=== PATIENT | male | born 1985 | race Caucasian/White ===

== ENCOUNTER 2021-09-07 08:23 | Emergency (ER) | payer OTHER, SELFPAY ==
--- NOTE | ~2021-09-07 | XR_ITS ---
EXAMINATION: XR RIBS, LEFT CLINICAL INFORMATION: Left chest wall and back pain. COMPARISON: None TECHNIQUE: 3 views of the left ribs were obtained. Chest one view FINDINGS: Lungs are hyperinflated. No consolidation, pneumothorax, or pleural effusion. The cardiomediastinal silhouette and pulmonary vasculature are normal. Osseous structures are unremarkable. Ribs are intact. No fractures are identified. XR/XR ribs LT min 3V w CXR1V IMPRESSION: Unremarkable chest and left rib exam.
[2021-09-07 08:54] VITALS: BP 155/99; PULSE 78; RESP 19; TEMP 36.6; O2SAT 99; BMI 26.6
--- NOTE | 2021-09-07 09:26 | ED.GENADULT ---
HPI - General Adult General Chief complaint: General Medical <Pita Pino NP - Last Filed: 09/07/21 11:10> Stated complaint: flank pain <Pita Pino NP - Last Filed: 09/07/21 11:10> Time Seen by Provider: 09/07/21 09:10 <Pita Pino NP - Last Filed: 09/07/21 11:10> Source: patient <Pita Pino NP - Last Filed: 09/07/21 11:10> Mode of arrival: ambulatory <Pita Pino NP - Last Filed: 09/07/21 11:10> Limitations: no limitations <Pita Pino NP - Last Filed: 09/07/21 11:10> History of Present Illness HPI narrative: 36yo male heatlhy with history of tobacco smoking here with complaints of left chest wall/rib pain since Monday. Worsened since last evening. +chronic cough which patient contributes to smoking. NO shortness of breath, leg swelling or pain, fevers, chills, abdominal pain, vomiting, diarrhea. 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 No specific injury or trauma that the patient can remember. No recent travel or sick contact. Unvaccinated for covid. No history of DVT/PE, +family history (mom). <Pita Pino NP - Last Filed: 09/07/21 11:10> Related Data Home medications: Previous Rx's Medication Instructions Recorded cyclobenzaprine 10 mg tablet 10 mg PO TID PRN #10 tab 09/07/21 lidocaine 5 % topical patch 1 patch TOPICAL DAILY #15 ea 09/07/21 (Lidoderm) naproxen 500 mg tablet 500 mg PO BID PRN #20 tab 09/07/21 <Pita Pino NP - Last Filed: 09/07/21 11:10> Allergies/adverse reactions: Allergies Allergy/AdvReac Type Severity Reaction Status Date / Time No Known Allergies Allergy Verified 09/07/21 09:18 <Pita Pino NP - Last Filed: 09/07/21 11:10> Review of Systems Review of Systems: Yes all other systems are reviewed and are negative <Pita Pino NP - Last Filed: 09/07/21 11:10> Constitutional: Constitutional: Reports no additional constitutional complaints, Denies body ache(s), Denies chills, Denies fever(s), Denies headache(s) and Denies weakness <Pita Pino [employer] HATCH[employer] SUPERVISOR - Last Filed: 09/07/21 11:10> Eyes: Eyes: Reports no additional eye complaints and Denies change in vision <Pita Pino [employer] HATCHERY SUPERVISOR - Last Filed: 09/07/21 11:10> ENT: Reports system reviewed and no additional complaints, except as documented, Denies dizziness, Denies headache(s), Denies nasal congestion, Denies nasal discharge and Denies neck pain <Pita Pino NP - Last Filed: 09/07/21 11:10> Cardiovascular: Cardiovascular: Reports no additional cardiovascular complaints, Reports chest pain, Denies leg edema and Denies dyspnea <Pita Pino NP - Last Filed: 09/07/21 11:10> Respiratory: Respiratory: Reports no additional respiratory complaints, Denies cough and Denies dyspnea <Pita Pino [employer] HATCHERY SUPERVISOR - Last Filed: 09/07/21 11:10> Gastrointestinal: Gastrointestinal: Reports no additional gastrointestinal complaints, Denies abdominal pain, Denies diarrhea, Denies nausea and Denies vomiting <Pita Pino NP - Last Filed: 09/07/21 11:10> Genitourinary: Genitourinary: Denies urinary incontinence <Pita Pino NP - Last Filed: 09/07/21 11:10> Musculoskeletal: Musculoskeletal: Reports no additional musculoskeletal complaints, Denies back pain, Denies arthralgias, Denies joint swelling, Denies neck pain, Denies numbness and Denies tingling <Pita Pino NP - Last Filed: 09/07/21 11:10> Integumentary/Breasts: Skin/Breast: Reports system reviewed and no additional complaints, except as docu and Denies rash <Pita Pino NP - Last Filed: 09/07/21 11:10> Neurologic: Reports system reviewed and no additional complaints, except as documented, Denies Abnormal speech present, Denies dizziness, Denies headache(s), Denies numbness, Denies tingling and Denies weakness <Pita Pion NP - Last Filed: 09/07/21 11:10> [facility] Past Medical History Attestation statement: The following information was validated with the patient. <Pita Pino NP - Last Filed: 09/07/21 11:10> Source: old records reviewed and nursing notes reviewed <Pita Pino NP - Last Filed: 09/07/21 11:10> Social History Social History: Social History Advance Directives: No Advance Directives Information Provided: No <Pita Pino NP - Last Filed: 09/07/21 11:10> Physical Exam Vital Signs: Vital Signs: Last Vital Signs Temp 98 F 09/07/21 08:54 Pulse 78 09/07/21 08:54 Resp 09/07/21 08:54 BP 155/99 H 09/07/21 08:54 Pulse Ox 99 09/07/21 08:54 BMI result Body Mass Index 26.6 <Pita Pino NP - Last Filed: 09/07/21 11:10> Vital Signs: Last Vital Signs Temp 98 F 09/07/21 08:54 Pulse 78 09/07/21 08:54 Resp 09/07/21 08:54 BP 155/99 H 09/07/21 08:54 Pulse Ox 99 09/07/21 08:54 BMI result Body Mass Index 26.6 <Joni Montesinos MD - Last Filed: 09/07/21 16:28> Const: General: cooperative, healthy appearing, comfortable and no acute distress <Pita Pino NP - Last Filed: 09/07/21 11:10> Orientation/consciousness: patient oriented x3 <Pita Pino NP - Last Filed: 09/07/21 11:10> Limitations: no limitations <Pita Pino NP - Last Filed: 09/07/21 11:10> HENMT: Head: Yes normal to inspection <Pita Pino NP - Last Filed: 09/07/21 11:10> Ears: hearing grossly normal bilaterally <Pita Pino NP - Last Filed: 09/07/21 11:10> General nose exam: Normal external nose present <Pita Pino NP - Last Filed: 09/07/21 11:10> Face and sinus: Yes normal facial exam <Pita Pino NP - Last Filed: 09/07/21 11:10> Mouth: Normal oral and palatal mucosa present <Pita Pino NP - Last Filed: 09/07/21 11:10> Throat: Yes posterior oropharynx normal <Pita Pino NP - Last Filed: 09/07/21 11:10> Eyes: General: appearance normal, both eyes and all related structures <Pita Pino NP - Last Filed: 09/07/21 11:10> Pupils: Equal, round and reactive pupils present <Pita Pino NP - Last Filed: 09/07/21 11:10> Neck: Neck: Yes normal visual inspection <Pita Pino NP - Last Filed: 09/07/21 11:10> Chest: Chest palpation & inspection: normal inspection of the chest and tenderness (Left lateral/posterior chest wall with palp, movement of trunk) <Pita Pino NP - Last Filed: 09/07/21 11:10> Resp: Effort & Inspection: normal respiratory effort <Pita Pino NP - Last Filed: 09/07/21 11:10> Auscultation: clear to auscultation bilaterally <Pita Pino NP - Last Filed: 09/07/21 11:10> Cardio: Rate: regular rate <Pita Pino NP - Last Filed: 09/07/21 11:10> Rhythm: regular rhythm <Pita Pino NP - Last Filed: 09/07/21 11:10> Peripheral pulses: Peripheral pulses 2+ throughout <Pita Pino NP - Last Filed: 09/07/21 11:10> GI: Inspection: Yes normal to inspection <Pita Pino NP - Last Filed: 09/07/21 11:10> Palpation (GI): Soft to palpation and nontender <Pita Pino NP - Last Filed: 09/07/21 11:10> Auscultation: normal bowel sounds <Pita Pino NP - Last Filed: 09/07/21 11:10> Back/Spine/Pelvis: Thoracic/Lumbar Spine: thoracic and lumbar spine normal to inspection <Pita Pino NP - Last Filed: 09/07/21 11:10> Skin: General skin exam: no rashes or lesions noted <Pita Pino NP - Last Filed: 09/07/21 11:10> Neuro: General: patient oriented x3, no focal motor deficits and normal sensation to monofilament <Pita Pino NP - Last Filed: 09/07/21 11:10> Cranial nerves: Yes Equal, round and reactive pupils present <Pita Pino NP - Last Filed: 09/07/21 11:10> Cognition (Neuro): normal cognition <Pita Pino NP - Last Filed: 09/07/21 11:10> Speech: No Abnormal speech present <Pita Pino NP - Last Filed: 09/07/21 11:10> Gait exam (Neuro): Normal gait present <Pita Pino NP - Last Filed: 09/07/21 11:10> Motor exam (neuro): 5/5 motor strength present throughout <Pita Pino NP - Last Filed: 09/07/21 11:10> Extrem: General: Yes normal to inspection, Yes no pedal edema and Yes no calf tenderness <Pita Pino NP - Last Filed: 09/07/21 11:10> Course Course Course Narrative: 36 yo male tobacco smoker here with left sided chest wall pain x several days with associated +dry chronic+ cough with no known injury or trauma. On exam tenderness to palp and worsened with movement and deep breathing. No leg swelling or pain. Will check x-ray. labs including d dimer. Provide analgesia. 1100-x-ray shows no acute finding. Labs are unremarkable. Likely chest wall strain ?from coughing or activity at work. Improvement with Toradol. Will discharge home with course of NSAIDs, low-dose muscle relaxants and medicated patches. Recommended patient follow-up with primary care doctor in 7 days for persistent pain. Reviewed worrisome signs and symptoms of when to return to the emergency department. Comfortable discharge home <Pita Pino NP - Last Filed: 09/07/21 11:10> Medical Decision Making MDM Narrative Medical decision making narrative: chest wall strain, pe, pna <Pita Pino NP - Last Filed: 09/07/21 11:10> Medical Records Medical records reviewed: Yes I reviewed the patient's medical records. <Pita Pino NP - Last Filed: 09/07/21 11:10> Lab Data Lab results reviewed: Yes I reviewed the patient's lab results. <Pita Pino NP - Last Filed: 09/07/21 11:10> Result diagrams: : 09/07/21 10:11 09/07/21 10:11 <Pita Pino NP - Last Filed: 09/07/21 11:10> Labs: Lab Results 09/07/21 09/07/21 09/07/21 Range/Units 10:11 10:11 10:11 WBC 5.3 (4.8-10.8) X10*3/uL RBC 5.02 (4.60-5.80) X10*6/uL Hgb 15.6 (14.0-18.0) g/dl Hct 47.6 (42.0-52.0) % MCV 94.8 (80.0-98.0) fL MCH 31.1 (27.0-33.0) pg MCHC 32.8 (31.0-36.0) g/dl RDW 13.3 (11.0-16.0) % Plt Count 391 (160-400) X10*3/uL MPV 9.5 (9.4-12.4) fL Immature Gran % (Auto) 0.2 (0.0-0.4) % Neut % (Auto) 56.0 (45-73) % Lymph % (Auto) 33.7 (20-40) % [place] % (Auto) 8.9 (2-11) % Eos % (Auto) 0.8 (0-4) % Baso % (Auto) 0.4 (0-2) % Lymph # (Auto) 1.8 (1.2-4.9) X10*3/uL [place] # (Auto) 0.5 (0.1-1.2) X10*3/uL Eos # (Auto) 0.0 (0.0-0.4) X10*3/uL Baso # (Auto) 0.0 (0.0-0.2) X10*3/uL Abs Immat Gran (auto) 0.01 (0.00-0.03) X10*3/uL Absolute Neuts (auto) 3.0 (2.0-8.3) x10*3/uL Absolute Nucleated RBC 0.000 (0.0-0.012) X10*3/uL Nucleated RBC % (auto) 0.0 (0.0-0.2) /100WBC D-Dimer High Sensitivty < 150 NG/ML Sodium 141 (135-145) mmol/L Potassium 4.7 (3.3-5.1) mmol/L Chloride 107 (96-108) mmol/L Carbon Dioxide 23 (22-29) mmol/L Anion Gap 16 (12-20) BUN 14 (9-16) mg/dL Creatinine 0.99 (0.5-1.4) mg/dL Estim Creat Clear Calc 85.5 Estimated GFR > 60 Random Glucose 100 (60-115) mg/dL Calcium 10.2 (8.4-10.2) mg/dL Total Bilirubin 0.4 (0.0-1.0) mg/dL Direct Bilirubin 0.2 (0.0-0.5) mg/dL AST 22 (5-37) U/L ALT 23 (0-40) U/L Alkaline Phosphatase 71 (39-117) U/L Troponin I High Sens (<3.5-35.0) ng/L Total Protein 8.1 H (6.5-8.0) g/dL Albumin 4.9 (3.5-5.0) g/dL Lipase 12 (8-78) U/L 09/07/21 Range/Units 10:11 WBC (4.8-10.8) X10*3/uL RBC (4.60-5.80) X10*6/uL Hgb (14.0-18.0) g/dl Hct (42.0-52.0) % MCV (80.0-98.0) fL MCH (27.0-33.0) pg MCHC (31.0-36.0) g/dl RDW (11.0-16.0) % Plt Count (160-400) X10*3/uL MPV (9.4-12.4) fL Immature Gran % (Auto) (0.0-0.4) % Neut % (Auto) (45-73) % Lymph % (Auto) (20-40) % [place] % (Auto) (2-11) % Eos % (Auto) (0-4) % Baso % (Auto) (0-2) % Lymph # (Auto) (1.2-4.9) X10*3/uL [place] # (Auto) (0.1-1.2) X10*3/uL Eos # (Auto) (0.0-0.4) X10*3/uL Baso # (Auto) (0.0-0.2) X10*3/uL Abs Immat Gran (auto) (0.00-0.03) X10*3/uL Absolute Neuts (auto) (2.0-8.3) x10*3/uL Absolute Nucleated RBC (0.0-0.012) X10*3/uL Nucleated RBC % (auto) (0.0-0.2) /100WBC D-Dimer High Sensitivty NG/ML Sodium (135-145) mmol/L Potassium (3.3-5.1) mmol/L Chloride (96-108) mmol/L Carbon Dioxide (22-29) mmol/L Anion Gap (12-20) BUN (9-16) mg/dL Creatinine (0.5-1.4) mg/dL Estim Creat Clear Calc Estimated GFR Random Glucose (60-115) mg/dL Calcium (8.4-10.2) mg/dL Total Bilirubin (0.0-1.0) mg/dL Direct Bilirubin (0.0-0.5) mg/dL AST (5-37) U/L ALT (0-40) U/L Alkaline Phosphatase (39-117) U/L Troponin I High Sens < 3.5 (<3.5-35.0) ng/L Total Protein (6.5-8.0) g/dL Albumin (3.5-5.0) g/dL Lipase (8-78) U/L <Pita Pino NP - Last Filed: 09/07/21 11:10> Lab Results 09/07/21 09/07/21 09/07/21 Range/Units 10:11 10:11 10:11 WBC 5.3 (4.8-10.8) X10*3/uL RBC 5.02 (4.60-5.80) X10*6/uL Hgb 15.6 (14.0-18.0) g/dl Hct 47.6 (42.0-52.0) % MCV 94.8 (80.0-98.0) fL MCH 31.1 (27.0-33.0) pg MCHC 32.8 (31.0-36.0) g/dl RDW 13.3 (11.0-16.0) % Plt Count 391 (160-400) X10*3/uL MPV 9.5 (9.4-12.4) fL Immature Gran % (Auto) 0.2 (0.0-0.4) % Neut % (Auto) 56.0 (45-73) % Lymph % (Auto) 33.7 (20-40) % [place] % (Auto) 8.9 (2-11) % Eos % (Auto) 0.8 (0-4) % Baso % (Auto) 0.4 (0-2) % Lymph # (Auto) 1.8 (1.2-4.9) X10*3/uL [place] # (Auto) 0.5 (0.1-1.2) X10*3/uL Eos # (Auto) 0.0 (0.0-0.4) X10*3/uL Baso # (Auto) 0.0 (0.0-0.2) X10*3/uL Abs Immat Gran (auto) 0.01 (0.00-0.03) X10*3/uL Absolute Neuts (auto) 3.0 (2.0-8.3) x10*3/uL Absolute Nucleated RBC 0.000 (0.0-0.012) X10*3/uL Nucleated RBC % (auto) 0.0 (0.0-0.2) /100WBC D-Dimer High Sensitivty < 150 NG/ML Sodium 141 (135-145) mmol/L Potassium 4.7 (3.3-5.1) mmol/L Chloride 107 (96-108) mmol/L Carbon Dioxide 23 (22-29) mmol/L Anion Gap 16 (12-20) BUN 14 (9-16) mg/dL Creatinine 0.99 (0.5-1.4) mg/dL Estim Creat Clear Calc 85.5 Estimated GFR > 60 Random Glucose 100 (60-115) mg/dL Calcium 10.2 (8.4-10.2) mg/dL Total Bilirubin 0.4 (0.0-1.0) mg/dL Direct Bilirubin 0.2 (0.0-0.5) mg/dL AST 22 (5-37) U/L ALT 23 (0-40) U/L Alkaline Phosphatase 71 (39-117) U/L Troponin I High Sens (<3.5-35.0) ng/L Total Protein 8.1 H (6.5-8.0) g/dL Albumin 4.9 (3.5-5.0) g/dL Lipase 12 (8-78) U/L 09/07/21 Range/Units 10:11 WBC (4.8-10.8) X10*3/uL RBC (4.60-5.80) X10*6/uL Hgb (14.0-18.0) g/dl Hct (42.0-52.0) % MCV (80.0-98.0) fL MCH (27.0-33.0) pg MCHC (31.0-36.0) g/dl RDW (11.0-16.0) % Plt Count (160-400) X10*3/uL MPV (9.4-12.4) fL Immature Gran % (Auto) (0.0-0.4) % Neut % (Auto) (45-73) % Lymph % (Auto) (20-40) % [place] % (Auto) (2-11) % Eos % (Auto) (0-4) % Baso % (Auto) (0-2) % Lymph # (Auto) (1.2-4.9) X10*3/uL [place] # (Auto) (0.1-1.2) X10*3/uL Eos # (Auto) (0.0-0.4) X10*3/uL Baso # (Auto) (0.0-0.2) X10*3/uL Abs Immat Gran (auto) (0.00-0.03) X10*3/uL Absolute Neuts (auto) (2.0-8.3) x10*3/uL Absolute Nucleated RBC (0.0-0.012) X10*3/uL Nucleated RBC % (auto) (0.0-0.2) /100WBC D-Dimer High Sensitivty NG/ML Sodium (135-145) mmol/L Potassium (3.3-5.1) mmol/L Chloride (96-108) mmol/L Carbon Dioxide (22-29) mmol/L Anion Gap (12-20) BUN (9-16) mg/dL Creatinine (0.5-1.4) mg/dL Estim Creat Clear Calc Estimated GFR Random Glucose (60-115) mg/dL Calcium (8.4-10.2) mg/dL Total Bilirubin (0.0-1.0) mg/dL Direct Bilirubin (0.0-0.5) mg/dL AST (5-37) U/L ALT (0-40) U/L Alkaline Phosphatase (39-117) U/L Troponin I High Sens < 3.5 (<3.5-35.0) ng/L Total Protein (6.5-8.0) g/dL Albumin (3.5-5.0) g/dL Lipase (8-78) U/L <Joni Montesinos MD - Last Filed: 09/07/21 16:28> Imaging Data ribs/chest xray: Attestation: I personally reviewed and interpreted this imaging study as follows: <Pita Pino NP - Last Filed: 09/07/21 11:10> Radiologist's impression: [address] [place] [address] XRay Report Signed Patient: Baltazar Braswell MR#: [id number] : 1985 Acct:[id number] Age/Sex: 36 / M ADM Date: 09/07/21 Loc: HO.ED Attending Dr: Ordering Physician: Joni Montesinos MD Date of Service: 09/07/21 Procedure(s): XR ribs LT min 3V w CXR1V Accession Number(s): [id number] cc: Joni Montesinos MD~ EXAMINATION: XR RIBS, LEFT CLINICAL INFORMATION: Left chest wall and back pain. COMPARISON: None TECHNIQUE: 3 views of the left ribs were obtained. Chest one view FINDINGS: Lungs are hyperinflated. No consolidation, pneumothorax, or pleural effusion. The cardiomediastinal silhouette and pulmonary vasculature are normal. Osseous structures are unremarkable. Ribs are intact. No fractures are identified. XR/XR ribs LT min 3V w CXR1V IMPRESSION: Unremarkable chest and left rib exam.? <Pita Pino NP - Last Filed: 09/07/21 11:10> Discharge Plan Discharge Clinical Impression: Chest wall muscle strain Qualifiers: Encounter type: initial encounter Qualified Code(s): S29.011A - Strain of muscle and tendon of front wall of thorax, initial encounter <Pita Pino NP - Last Filed: 09/07/21 11:10> Patient Disposition: Home, Self-Care <Pita Pino NP - Last Filed: 09/07/21 11:10> Instructions: Chest Wall Pain (ED) <Pita Pino NP - Last Filed: 09/07/21 11:10> Additional Instructions: Heat or ice gentle stretching No heavy lifting or bending <Pita Pino NP - Last Filed: 09/07/21 11:10> Prescriptions: New naproxen 500 mg tablet 500 mg PO BID PRN (Reason: pain) Qty: 20 RF: 0 cyclobenzaprine 10 mg tablet 10 mg PO TID PRN (Reason: muscle spasm) Qty: 10 RF: 0 lidocaine [Lidoderm] 5 % adhesive patch,medicated 1 patch topical DAILY Qty: 15 RF: 0 <Pita Pino NP - Last Filed: 09/07/21 11:10> Referrals: Physician,None [Primary Care Provider] - 2 days <Pita iPno NP - Last Filed: 09/07/21 11:10> Stand Alone Forms: Work/School Release <Pita Pino NP - Last Filed: 09/07/21 11:10> Interventions: ED Discharge Assessment Last Done: 09/07/21 11:18 <Pita Pino NP - Last Filed: 09/07/21 11:10> Discharge Date/Time: 09/07/21 11:19 <Pita Pino NP - Last Filed: 09/07/21 11:10>
[2021-09-07] MEDS: Ketorolac Tromethamine 60 MG/2 ML VIAL IM (09:30)
[2021-09-07 10:16] LABS: MANUAL DIFF FLAG NO
[2021-09-07 10:18] LABS: Basophils Percent Auto 0.4 % (0-2); Eosinophils Percent Auto 0.8 % (0-4); Hematocrit 47.6 % (42.0-52.0); Hemoglobin 15.6 g/dl (14.0-18.0); Imm Gran Abs Auto 0.01 X10*3/uL (0.00-0.03); Imm Gran Pct Auto 0.2 % (0.0-0.4); Lymphocytes Absolute Auto 1.8 X10*3/uL (1.2-4.9); Lymphocytes Percent Auto 33.7 % (20-40); Mean Corpuscular HGB Conc 32.8 g/dl (31.0-36.0); Mean Corpuscular Hemoglobin 31.1 pg (27.0-33.0); Mean Corpuscular Volume 94.8 fL (80.0-98.0); Mean Platelet Volume 9.5 fL (9.4-12.4); Monocytes Absolute Auto 0.5 X10*3/uL (0.1-1.2); Monocytes Percent Auto 8.9 % (2-11); Platelet Count 391 X10*3/uL (160-400); Red Blood Count 5.02 X10*6/uL (4.60-5.80); Red Cell Distribution Width 13.3 % (11.0-16.0); White Blood Count 5.3 X10*3/uL (4.8-10.8)
[2021-09-07 10:33] LABS: D Dimer High Sensitivity < 150 NG/ML
[2021-09-07 10:37] LABS: Alanine Aminotransferase 23 U/L (0-40); Albumin Level 4.9 g/dL (3.5-5.0); Alkaline Phosphatase 71 U/L (39-117); Anion Gap 16 (12-20); Aspartate Amino Transferase 22 U/L (5-37); Bilirubin Direct 0.2 mg/dL (0.0-0.5); Bilirubin Total 0.4 mg/dL (0.0-1.0); Blood Urea Nitrogen 14 mg/dL (9-16); Calcium 10.2 mg/dL (8.4-10.2); Carbon Dioxide 23 mmol/L (22-29); Chloride 107 mmol/L (96-108); Creatinine Clr Calc Pharmacy 85.5; Estimated Glomerular Filt Rate > 60; Glucose Random 100 mg/dL (60-115); Lipase 12 U/L (8-78); Potassium 4.7 mmol/L (3.3-5.1); Sodium 141 mmol/L (135-145); Total Protein 8.1 g/dL (6.5-8.0)
[2021-09-07 10:42] LABS: Troponin-I High Sensitivity < 3.5 ng/L (<3.5-35.0)
== END 2021-09-07 11:19 | disposition home or self-care (01) ==
PROVIDERS: Nurse Practitioner Family; Emergency Provider Emergency Medicine
DX: R07.89 Other chest pain (principal); M54.6 Pain in thoracic spine; M54.50 Low back pain, unspecified; R07.81 Pleurodynia; R05.9 Cough, unspecified; F17.200 Nicotine dependence, unspecified, uncomplicated; Z71.6 Tobacco abuse counseling; Z79.899 Other long term (current) drug therapy
CPT/HCPCS: 36415; 71101; 80048; 80076; 83690; 84484; 85025; 85379; 96372; 99284; J1885